=== PATIENT | male | born 1955 | race Hispanic/Latino ===

== ENCOUNTER 2016-11-30 10:43 | Outpatient (CLI) | payer BC ==
--- NOTE | 2016-11-30 16:18 | Nuclear Medicine Report ---
HEPATOBILIARY SCAN: HISTORY: Abdominal pain. COMPARISON: None at this facility. There is normal uptake of the radiotracer by the liver parenchyma. There is normal appearance of the radiotracer in the central biliary ducts, common bile duct and bowel loops. No convincing gallbladder activity is identified out to 2 hours. CCK was not administered. IMPRESSION: Nonvisualization of the gallbladder on HIDA scan which is concerning for acute cholecystitis. The patient was asymptomatic in the nuclear medicine Department.
== END 2016-11-30 10:44 | disposition home or self-care (01) ==
LOC: NM 10:43
PROVIDERS: ATTEND Internal Medicine
DX: R10.9 Unspecified abdominal pain (principal)
CPT/HCPCS: 78226; A9537